=== PATIENT | female | born 1990 | race Two or more races ===

== ENCOUNTER 2017-12-28 03:52 | Inpatient (IN) | END 2017-12-30 17:05 | disposition home or self-care (01) | DRG 775 ==

== ENCOUNTER 2018-12-11 18:13 | Emergency (ER) | payer MEDICAID ==
[~2018-12-11] VITALS: Ht 167.6 cm; Wt 69.6 kg
[2018-12-11 18:48] VITALS: BP 117/64; PULSE 71; RESP 18; Ht 167.6 cm; Wt 69.6 kg
--- NOTE | 2018-12-12 02:20 | ERD ---
ER Documentation Chief Complaint Chief Complaint referred by pmd for eval. no fht. 7 weeks . denies vb/pain HPI History of Present Illness: Patient coming in today with referral from primary care doctor patient is reporting that she did a exam and there were no heart tones. Patient approximately 8 weeks . . Patient denies abdominal pain, nausea, vomiting, vaginal. At home pharmacological/nonpharmacological treatment for symptoms: Denies social concerns; Denies recent foreign travel ROS All systems reviewed and are negative except as per history of present illness. Medications Home Meds No Active Prescriptions or Reported Meds Allergies Allergies: Coded Allergies: No Known Allergy (Unverified , 12/28/17) PMhx/Soc Medical and Surgical Hx: pt denies Medical Hx, pt denies Surgical Hx Hx Alcohol Use: No Hx Substance Use: No Hx Tobacco Use: No Smoking Status: Never smoker FmHx Family History: No diabetes, No coronary disease Physical Exam Vitals Vital Signs Date Temp Pulse Resp B/P (MAP) Pulse Ox O2 O2 Flow FiO2 Time Delivery Rate 12/11/18 99.2 71 18 117/64 100 18:48 (81) Physical Exam Const: No acute distress, afebrile Head: Atraumatic Eyes: Normal Conjunctiva ENT: Normal External Ears, Nose and Mouth. Neck: Full range of motion. No meningismus. Resp: Clear to auscultation bilaterally Cardio: Regular rate and rhythm, no murmurs Abd: Soft, non tender, non distended. No guarding, no masses, no rigidity Skin: No petechiae or rashes Back: No midline or flank tenderness Ext: No cyanosis, or edema Neur: Awake and alert x3, speaking in clear sentences, no focal deficits or facial asymmetry Psych: Normal Mood and Affect Result Diagram: 12/11/182107 Results 24 hrs Laboratory Tests Test 12/11/18 21:08 White Blood Count 5.8 10^3/ul Red Blood Count 4.32 10^6/ul Hemoglobin 12.1 g/dl Hematocrit 38.3 % Mean Corpuscular Volume 88.7 fl Mean Corpuscular Hemoglobin 28.0 pg Mean Corpuscular Hemoglobin Concent 31.6 g/dl Red Cell Distribution Width 12.6 % Platelet Count 206 10^3/UL Mean Platelet Volume 10.2 fl Immature Granulocytes % 0.300 % Neutrophils % 58.1 % Lymphocytes % 34.5 % Monocytes % 6.2 % Eosinophils % 0.7 % Basophils % 0.2 % Nucleated Red Blood Cells % 0.0 /100WBC Immature Granulocytes # 0.020 10^3/ul Neutrophils # 3.4 10^3/ul Lymphocytes # 2.0 10^3/ul Monocytes # 0.4 10^3/ul Eosinophils # 0.0 10^3/ul Basophils # 0.0 10^3/ul Nucleated Red Blood Cells # 0.0 10^3/ul Urine Color YELLOW Urine Clarity TURBID Urine pH 7.0 Urine Specific [place] 1.019 Urine Ketones NEGATIVE mg/dL Urine Nitrite NEGATIVE mg/dL Urine Bilirubin NEGATIVE mg/dL Urine Urobilinogen NEGATIVE mg/dL Urine Leukocyte Esterase NEGATIVE [place]/ul Urine Microscopic RBC 2 /HPF Urine Microscopic WBC 0 /HPF Urine Squamous Epithelial Cells FEW /HPF Urine Amorphous Crystals FEW /HPF Urine Bacteria FEW /HPF Urine Hemoglobin NEGATIVE mg/dL Urine Glucose NEGATIVE mg/dL Urine Total Protein NEGATIVE mg/dl Beta HCG, Quantitative 73583.0 mIU/ml Procedures/MDM ED course includes a thorough examination and history. ED course includes imaging; transvaginal and abdominal ultrasound. ED course includes labs; CBC, urinalysis, beta hCG. Low suspicion for A life-threatening medical emergency or gynecological emergency requires hospitalization. Otherwise healthy patient presenting with constellation of symptoms likely representing blighted ovum/missed miscarriagee as characterized by history, physical exam findings, lab findings, ultrasound results. No infection [place] [address]. Ultrasound impression showing: Intrauterine gestation sac with yolk sac of approximate gestational age 7-week 6 days by ultrasound criteria. No pole or heartbeat. Findings are suspicious for blighted ovum. Correlation with quantitative serial beta HCG levels is recommended. Multiple subchorionic hemorrhages.Nonvisualization ovaries. Spoke to [facility] call PRICING/SIGNAGE TEAM [employer]BER Dr. Jeff by telephone. Reporting that patient should follow-up with primary care doctor for referral to [employer]ICING[employer]SIGNAGE TEAM MEMBER for plan of care. Dr. Jeff reporting that no medication should be given during ER visit to cause . Patient reassessment: Patient updated on ultrasound findings and lab findings. Patient updated on [employer]ING[employer]SIGNAGE TEAM MEMBER consultation. Significant other and other family member present. Patient verbalizes understanding of instructions. Will follow up with primary care doctor for referral to PRICING/SIGNAGE TEAM MEMBER for further plan of care. No respiratory distress, otherwise relatively well appearing and nontoxic. Patient educated on diagnoses, prescriptions, follow-up care, return precautions. Strict return precautions given for worsening condition; questions answered discharge. Disposition for discharge with followup in 1-2 days with PCP/clinic. Disclaimer: Inadvertent spelling and grammatical errors are likely due to EHR/dictation software use and do not reflect on the overall quality of patient care. Also, please note that the electronic time recorded on this note does not necessarily reflect the actual time of the patient encounter. Departure Diagnosis: Primary Impression: Blighted ovum Condition: Stable Patient Instructions: Missed Miscarriage Referrals: [facility] YOU HAVE RECEIVED A MEDICAL SCREENING EXAM AND THE RESULTS INDICATE THAT YOU DO NOT HAVE A CONDITION THAT REQUIRES URGENT TREATMENT IN THE EMERGENCY DEPARTMENT. FURTHER EVALUATION AND TREATMENT OF YOUR CONDITION CAN WAIT UNTIL YOU ARE SEEN IN YOUR DOCTORS OFFICE WITHIN THE NEXT 1-2 DAYS. IT IS YOUR RESPONSIBILITY TO MAKE AN APPOINTMENT FOR FOLOW-UP CARE. IF YOU HAVE A PRIMARY DOCTOR --you should call your primary doctor and schedule an appointment IF YOU DO NOT HAVE A PRIMARY DOCTOR YOU CAN CALL OUR PHYSICIAN REFERRAL HOTLINE AT IF YOU CAN NOT AFFORD TO SEE A PHYSICIAN YOU CAN CHOSE FROM THE FOLLOWING [facility] [address] [facility]. [facility] [address] [facility]. [facility] [address] [facility]. [facility] [address] [facility] [facility] [facility] [address] [facility]. [facility]. [address] [facility]. [facility] YOU HAVE RECEIVED A MEDICAL SCREENING EXAM AND THE RESULTS INDICATE THAT YOU DO NOT HAVE A CONDITION THAT REQUIRES URGENT TREATMENT IN THE EMERGENCY DEPARTMENT. FURTHER EVALUATION AND TREATMENT OF YOUR CONDITION CAN WAIT UNTIL YOU ARE SEEN IN YOUR DOCTORS OFFICE WITHIN THE NEXT 1-2 DAYS. IT IS YOUR RESPONSIBILITY TO MAKE AN APPOINTMENT FOR FOLOW-UP CARE. IF YOU HAVE A PRIMARY DOCTOR --you should call your primary doctor and schedule and appointment IF YOU DO NOT HAVE A PRIMARY DOCTOR YOU CAN CALL OUR PHYSICIAN REFERRAL HOTLINE AT . IF YOU CAN NOT AFFORD TO SEE A PHYSICIAN YOU CAN CHOSE FROM THE FOLLOWING [facility] INSTITUTIONS: [facility] [address] [place] [address] [facility] [address] [place] [address] [place] [address] [place] [address] PRICING/SIGNAGE TEAM [place] [id number] [facility] [address] [place] [address] OFFICE FAX , [facility] [address] [place], [place] [id number] [facility] [facility] [address] [place] [address] [address] [facility] [address] [facility] [address] [address] [facility] [address] [place] [address] [facility] [address] [place] [address] [address] [facility] [address] - [address], [facility] [address] [address] [address] [facility]. [address], [facility] [address] [address] [address] [place], [place] [id number] Additional Instructions: Thank you very much for allowing us to participate in your care. Your health and safety is our top priority at [facility]. Call your primary care doctor TOMORROW for an appointment during the next 2-4 days and bring all the information and medications prescribed. If the symptoms get worse and your provider is unavailable, return to the Emergency Department immediately. If vaginal bleeding, abdominal pain; return to emergency room. CHARLOTTE HICKS NP Dec 12, 2018 02:20
== END 2018-12-12 01:23 | disposition home or self-care (01) ==
LOC: FTE 18:13
DX: O02.0 Blighted ovum and nonhydatidiform mole (principal); Z3A.01 Less than 8 weeks gestation of pregnancy
CPT/HCPCS: 36415; 76801; 81001; 84702; 85025; 86900; 86901; Z7502

== ENCOUNTER 2018-12-16 18:43 | Emergency (ER) | payer MEDICAID ==
[~2018-12-16] VITALS: Ht 167.6 cm; Wt 70.2 kg
[2018-12-16 19:11] VITALS: BP 125/70; PULSE 77; RESP 18; Ht 167.6 cm; Wt 70.2 kg
--- NOTE | 2018-12-16 21:51 | ERD ---
ER Documentation Chief Complaint Chief Complaint SENT FROM PCP FOR U/S TO R/O MISCARRIAGE ROS All systems reviewed and are negative except as per history of present illness. Medications Home Meds No Active Prescriptions or Reported Meds Allergies Allergies: Coded Allergies: No Known Allergy (Unverified , 12/28/17) PMhx/Soc Medical and Surgical Hx: pt denies Medical Hx, pt denies Surgical Hx Hx Alcohol Use: No Hx Substance Use: No Hx Tobacco Use: No Smoking Status: Never smoker Physical Exam Vitals Vital Signs Date Temp Pulse Resp B/P (MAP) Pulse Ox O2 O2 Flow FiO2 Time Delivery Rate 12/16/18 98.6 77 18 125/70 100 19:11 (88) Physical Exam Const: No acute distress Head: Atraumatic Eyes: Normal Conjunctiva ENT: Normal External Ears, Nose and Mouth. Neck: Full range of motion. No meningismus. Resp: Clear to auscultation bilaterally Cardio: Regular rate and rhythm, no murmurs Abd: Soft, non tender, non distended. Normal bowel sounds Skin: No petechiae or rashes Back: No midline or flank tenderness Ext: No cyanosis, or edema Neur: Awake and alert Psych: Normal Mood and Affect Result Diagram: 12/16/18 1950 Results 24 hrs Laboratory Tests Test 12/16/18 19:50 White Blood Count 5.2 10^3/ul Red Blood Count 4.29 10^6/ul Hemoglobin 12.0 g/dl Hematocrit 38.3 % Mean Corpuscular Volume 89.3 fl Mean Corpuscular Hemoglobin 28.0 pg Mean Corpuscular Hemoglobin Concent 31.3 g/dl Red Cell Distribution Width 12.8 % Platelet Count 190 10^3/UL Mean Platelet Volume 9.3 fl Immature Granulocytes % 0.400 % Neutrophils % 62.3 % Lymphocytes % 29.5 % Monocytes % 6.8 % Eosinophils % 0.8 % Basophils % 0.2 % Nucleated Red Blood Cells % 0.0 /100WBC Immature Granulocytes # 0.020 10^3/ul Neutrophils # 3.2 10^3/ul Lymphocytes # 1.5 10^3/ul Monocytes # 0.4 10^3/ul Eosinophils # 0.0 10^3/ul Basophils # 0.0 10^3/ul Nucleated Red Blood Cells # 0.0 10^3/ul Urine Color YELLOW Urine Clarity SLIGHTLY CLOUDY Urine pH 6.0 Urine Specific [place] 1.019 Urine Ketones NEGATIVE mg/dL Urine Nitrite NEGATIVE mg/dL Urine Bilirubin NEGATIVE mg/dL Urine Urobilinogen NEGATIVE mg/dL Urine Leukocyte Esterase NEGATIVE [place]/ul Urine Microscopic RBC 0 /HPF Urine Microscopic WBC 1 /HPF Urine Squamous Epithelial Cells MODERATE /HPF Urine Bacteria FEW /HPF Urine Hemoglobin NEGATIVE mg/dL Urine Glucose NEGATIVE mg/dL Urine Total Protein NEGATIVE mg/dl Beta HCG, Quantitative 92531.0 mIU/ml Departure Diagnosis: Primary Impression: Blighted ovum Condition: Fair Patient Instructions: Missed Miscarriage Referrals: [facility] YOU HAVE RECEIVED A MEDICAL SCREENING EXAM AND THE RESULTS INDICATE THAT YOU DO NOT HAVE A CONDITION THAT REQUIRES URGENT TREATMENT IN THE EMERGENCY DEPARTMENT. FURTHER EVALUATION AND TREATMENT OF YOUR CONDITION CAN WAIT UNTIL YOU ARE SEEN IN YOUR DOCTORS OFFICE WITHIN THE NEXT 1-2 DAYS. IT IS YOUR RESPONSIBILITY TO MAKE AN APPOINTMENT FOR FOLOW-UP CARE. IF YOU HAVE A PRIMARY DOCTOR --you should call your primary doctor and schedule an appointment IF YOU DO NOT HAVE A PRIMARY DOCTOR YOU CAN CALL OUR PHYSICIAN REFERRAL HOTLINE AT IF YOU CAN NOT AFFORD TO SEE A PHYSICIAN YOU CAN CHOSE FROM THE FOLLOWING [facility] [address] [facility]. [facility] [address] [facility]. [facility] [address] [facility]. [facility] [address] [facility]. [facility] [address] [facility]. [facility] [address] Additional Instructions: Call your primary care doctor TOMORROW for an appointment during the next 1-2 days.See the doctor sooner or return here if your condition worsens before your appointment time. Follow up with MAIL LIST LIBRARIAN in 1-2 days. JOSE DE JESUS WHALEN DO Dec 16, 2018 21:51
== END 2018-12-16 21:55 | disposition home or self-care (01) ==
LOC: FTE 18:43
DX: O02.0 Blighted ovum and nonhydatidiform mole (principal)
CPT/HCPCS: 36415; 76801; 76817; 81001; 81003; 84702; 85025

== ENCOUNTER 2019-04-20 19:27 | Emergency (ER) | payer SELFPAY ==
[~2019-04-20] VITALS: Ht 167.6 cm; Wt 68.4 kg
[~2019-04-20 19:27] MED LIST: ACET325T33 PO
[2019-04-20 19:36] VITALS: BP 123/58; PULSE 82; RESP 16; Ht 167.6 cm; Wt 68.4 kg
--- NOTE | 2019-04-20 20:45 | ERD ---
ER Documentation Chief Complaint Chief Complaint 6WKS PREG; FLANK PAIN W/ HEMATURIA & DYSURIA X1DAY; [id number] HPI 28-year-old female, at approximately 6 weeks , presents the emergency department, complaining of 1 day with vaginal spotting, described as light and pink, associated with pelvic discomfort. Otherwise, no fever, no chills, no abdominal pain, no diarrhea or constipation, no dysuria. ROS All systems reviewed and are negative except as per history of present illness. Medications Home Meds Active Scripts Acetaminophen* (Tylenol*) 325 Mg Tablet, 2 TAB PO Q6 PRN for PAIN AND OR ELEVATED TEMP, #20 TAB Prov:LYNDON SENA MD 04/20/19 Allergies Allergies: Coded Allergies: No Known Allergy (Unverified , 12/28/17) PMhx/Soc Hx Miscellaneous Medical Probl: Yes (MISCARRIAGE) Hx Alcohol Use: No Hx Substance Use: No Hx Tobacco Use: No Smoking Status: Never smoker FmHx Family History: No diabetes, No coronary disease Physical Exam Vitals Vital Signs Date Temp Pulse Resp B/P (MAP) Pulse Ox O2 O2 Flow FiO2 Time Delivery Rate 04/20/19 99.1 82 16 123/58 99 19:36 (79) Physical Exam Const: No acute distress Head: Atraumatic Eyes: Normal Conjunctiva ENT: Normal External Ears, Nose and Mouth. Neck: Full range of motion. No meningismus. Resp: Clear to auscultation bilaterally Cardio: Regular rate and rhythm, no murmurs Abd: Soft, non tender, non distended. Normal bowel sounds Skin: No petechiae or rashes Back: No midline or flank tenderness Ext: No cyanosis, or edema Neur: Awake and alert Psych: Normal Mood and Affect Result Diagram: 04/20/192106 Results 24 hrs Laboratory Tests Test 04/20/19 21:04 04/20/19 21:07 POC Beta HCG, Qualitative POSITIVE White Blood Count 5.1 10^3/ul Red Blood Count 4.70 10^6/ul Hemoglobin 13.1 g/dl Hematocrit 41.1 % Mean Corpuscular Volume 87.4 fl Mean Corpuscular Hemoglobin 27.9 pg Mean Corpuscular Hemoglobin Concent 31.9 g/dl Red Cell Distribution Width 13.1 % Platelet Count 197 10^3/UL Mean Platelet Volume 9.9 fl Immature Granulocytes % 0.200 % Neutrophils % 58.9 % Lymphocytes % 33.6 % Monocytes % 6.1 % Eosinophils % 0.8 % Basophils % 0.4 % Nucleated Red Blood Cells % 0.0 /100WBC Immature Granulocytes # 0.010 10^3/ul Neutrophils # 3.0 10^3/ul Lymphocytes # 1.7 10^3/ul Monocytes # 0.3 10^3/ul Eosinophils # 0.0 10^3/ul Basophils # 0.0 10^3/ul Nucleated Red Blood Cells # 0.0 10^3/ul Urine Color YELLOW Urine Clarity SLIGHTLY CLOUDY Urine pH 7.0 Urine Specific [place] 1.016 Urine Ketones NEGATIVE mg/dL Urine Nitrite NEGATIVE mg/dL Urine Bilirubin NEGATIVE mg/dL Urine Urobilinogen NEGATIVE mg/dL Urine Leukocyte Esterase TRACE [place]/ul Urine Microscopic RBC 101 /HPF Urine Microscopic WBC 7 /HPF Urine Squamous Epithelial Cells FEW /HPF Urine Bacteria FEW /HPF Urine Hemoglobin 3+ mg/dL Urine Glucose NEGATIVE mg/dL Urine Total Protein NEGATIVE mg/dl Beta HCG, Quantitative 12351.0 mIU/ml DIAGNOSTIC IMAGING REPORT Patient: MANDIE JOHANSEN : 1990 Age: 28 Sex: F MR #: [id number] DOS: 04/20/192046 Ordering MD: LYNDON SENA MD Location: [facility] Room/Bed: PROCEDURE: US OB. CLINICAL INDICATION: . Vaginal bleeding. TECHNIQUE: Multiple sonographic images of the pelvis were obtained. Transabdominal and transvaginal views of the pelvis are available for review. The images were reviewed on a PACS workstation. COMPARISON: No prior studies are available for comparison. FINDINGS: The uterus appears septated. Uterus measures 9 x 4.7 x 7.7 cm. Within both uterine horns there are small gestational sacs without a yolk sac or pole. On the right the sac measures 8 mm diameter correspond to 5 weeks 3 days with a adjacent 6 mm subchorionic hemorrhage. On the left there is a 6.4 mm gestational sac correspond to 5 weeks 1 day with a adjacent 7 mm subchorionic hemorrhage. There is a 1.1 cm complex right ovarian cyst. The ovaries are otherwise unremarkable with vascular flow. There is no adnexal mass or free fluid. IMPRESSION: Packed septated uterus with a small gestational sacs an age uterine horn measuring 5 weeks 3 days size and 5 weeks 1 day size, both without a gestational sac, pole or heart motion. Both sacs may represent early intrauterine pregnancies too small to identify a pole although a pole should be visible with the next few days. Bilateral subchorionic hemorrhage.. Right ov epifanio complex cyst. No adnexal mass or free fluid to suggest ectopic . Procedures/MDM Vital signs stable, Physical exam unremarkable. Differential diagnosis include but not limited to: UTI, threatening , incomplete versus complete , ectopic , physiologic implantation bleeding, molar . Physical examination and clinical presentation most likely consistent with threatening . During the ED course the patient remained hemodynamically stable and asymptomatic. Results and clinical impression discussed with patient who agrees with management. The patient is stable to be treated outpatient and will be discharged home with close monitoring and follow-up in 2 days with her primary physician. Bed rest and pelvic rest recommended until further medical evaluation. The patient was instructed regarding the outcomes and the potential complications like severe bleeding and . If the patient presents severe bleeding or pain, she was instructed to return to the hospital immediately. Disclaimer: Inadvertent spelling and grammatical errors are likely due to EHR/dictation software use and do not reflect on the overall quality of patient care. Also, please note that the electronic time recorded on this note does not necessarily reflect the actual time of the patient encounter. Departure Diagnosis: Primary Impression: 5 weeks gestation of Additional Impression: Threatened Condition: Stable Additional Instructions: Thank you very much for allowing us to participate in your care. Your health and safety is our top priority at [facility]. The evaluation in the emergency department has been done to rule out an acute emergency. Chronic, [id number] conditions may have not been evaluated; therefore, you need to follow up with a primary care provider in the next 48h. If symptoms persist, worsen or new symptoms develop, then patient should return to the ED immediately. Call your primary care doctor TOMORROW for an appointment during the next 2-4 days and bring all the information provided. Have prescriptions filled and follow precisely the directions on the label. If the symptoms get worse and your provider is unavailable, return to the Emergency Department immediately. LYNDON SENA MD Apr 20, 2019 20:45
== END 2019-04-20 22:50 | disposition home or self-care (01) ==
LOC: FTE 19:27
DX: O20.0 Threatened abortion (principal); R10.9 Unspecified abdominal pain; Z3A.01 Less than 8 weeks gestation of pregnancy
CPT/HCPCS: 76801; 76817; 81001; 81025; 84702; 85025